=== PATIENT | male | born 1970 | race Caucasian/White ===

== ENCOUNTER 2020-06-23 16:33 | Inpatient (IN) | payer BC ==
[~2020-06-23] VITALS: Ht 172.7 cm; Wt 83.7 kg
[~2020-06-23 16:33] MED LIST: MECL-226 PO
[2020-06-23] MEDS ORDERED: D-ME-162 PO (16:52)
[2020-06-23 17:25] LABS: BASOPHILS % (AUTO) 0.7 % (0.0-2.0); EOSINOPHILS % (AUTO) 0.2 % (1.0-6.0); HEMATOCRIT 43.9 % (41-53); HEMOGLOBIN 15.5 g/dL (13.5-17.5); LYMPHOCYTES # (AUTO) 1.1 K/uL (1.0-4.8); LYMPHOCYTES % (AUTO) 16.9 % (22.0-44.0); MEAN CORPUSCULAR HEMOGLOBIN 32.3 pg (26.0-34.0); MEAN CORPUSCULAR HGB CONC 35.3 G/dL (31.0-37.0); MEAN CORPUSCULAR VOLUME 92 fL (80-100); MONOCYTES # (AUTO) 0.4 K/uL (0.1-1.0); MONOCYTES % (AUTO) 5.8 % (2.0-9.0); NEUTROPHILS % (AUTO) 76.4 % (40.0-70.0); PLATELET COUNT (AUTO) 195 K/uL (150-450); RED BLOOD CELL COUNT(AUTO) 4.78 MIL/uL (4.50-5.90); RED CELL DISTRIBUTION WIDTH 13.2 % (11.5-14.5)
[2020-06-23 17:34] LABS: ANION GAP 11 mmol/L (8-16); CALCIUM, TOTAL 8.3 mg/dL (8.8-10.5); CARBON DIOXIDE 27 mmol/L (22-29); CHLORIDE 103 mmol/L (98-107); CREATININE 1.14 mg/dL (0.60-1.30); GLOMERULAR FILTR. RATE CALC > 60 mL/min (>60); GLUCOSE,RANDOM 129 mg/dL (70-110); POTASSIUM 3.6 mmol/L (3.5-5.1); SODIUM SERUM 141 mmol/L (136-145); UREA NITROGEN, BLOOD 12 mg/dL (7-18)
[2020-06-23 17:40] LABS: ALANINE AMINOTRANSFERASE 121 U/L (12-78); ALBUMIN 3.1 g/dL (3.4-5.0); ALKALINE PHOSPHATASE 111 U/L (46-116); ASPARTATE AMINOTRANSFERASE 137 U/L (15-37); BILIRUBIN,TOTAL 0.4 mg/dL (0.1-1.0); LIPASE 233 U/L (73-393); TOTAL PROTEIN, SERUM 7.4 g/dL (6.4-8.2)
[2020-06-23 18:04] LABS: ABG A-A DIFF O2 128.8 mmHg (10-20.0); ABG BASE EXCESS 1.6 mmol/L (-2.0-3.0); ABG CARBOXYHEMOGLOBIN 0.8 % (0.0-1.5); ABG HCO3 26.4 mmol/L (22.0-26.0); ABG METHEMOGLOBIN 0.3 % (0.0-1.5); ABG OXYGEN CONTENT 19.8 mL/dL (15.0-23.0); ABG OXYGEN SATURATION 93.4 % (95.0-98.0); ABG OXYHEMOGLOBIN 92.4 % (94.0-100.0); ABG PCO2 32 mmHg (35-45); ABG PH 7.504 (7.35-7.450); ABG TOTAL HEMOGLOBIN 15.3 G/dL (12.0-18.0); PO2, ARTERIAL BG 61.8 mmHg (84.0-92.0); SOURCE, BLOOD GAS ARTERIAL; TEMPERATURE, FAHRENHEIT, BG 98.6 FAHREN (96.0-98.6)
[2020-06-23 18:05] LABS: O2 DEVICE,BLOOD GAS CANNULA (ROOM AIR); SITE, BLOOD GAS RT RADIAL
[2020-06-23] MEDS ORDERED: SODIUM CHLORIDE 0.9% 1,000 ML IV ONE ×2 (18:15→20:15)
[2020-06-23 18:22] LABS: B-TYPE NATRIURETIC PEPTIDE 55 pg/mL (0-100)
[2020-06-23 18:24] LABS: COVID AG,FIA SOURCE NASOPHARYNGEAL
[2020-06-23 18:38] LABS: LACTIC ACID 1.1 mmol/L (0.4-2.0)
[2020-06-23] MEDS ORDERED: ACETAMINOPHEN 500 MG TABLET PO ONE (19:15)
[2020-06-23 19:17] LABS: INFLUENZA TYPE A NEGATIVE FOR TYPE A (NEGATIVE); INFLUENZA TYPE B NEGATIVE FOR TYPE B (NEGATIVE)
[2020-06-23] MEDS ORDERED: VANCOMYCIN HCL 1.5 GM in DEXTROSE 5%-WATER 250 ML IV ONE (19:30)
[2020-06-23] MEDS ORDERED: PIPERACILLIN/TAZO 3.375 GM/D5W 50 ML IV ONE (19:30)
[2020-06-23] MEDS ORDERED: ACETAMINOPHEN 325 MG TABLET PO PRN (19:30)
[2020-06-23] MEDS ORDERED: ONDANSETRON HCL 4 MG/2 ML VIAL IVP PRN (19:30)
[2020-06-23] MEDS ORDERED: SODIUM CHLORIDE 0.9% 100 ML ONE (20:05)
[2020-06-23] MEDS ORDERED: IOVERSOL 350 MG/ML 100 ML VIAL ONE (20:06)
[2020-06-23 20:08] LABS: C-REACTIVE PROTEIN QUANT 8.35 mg/dL (0.00-0.30); LACTATE DEHYDROGENASE 677 U/L (85-227)
[2020-06-23 20:40] LABS: FERRITIN 1522 ng/mL (26-388)
[2020-06-23 21:19] LABS: APPEARANCE,URINE CLEAR (CLEAR); BILIRUBIN,URINE NEGATIVE (NEGATIVE); GLUCOSE, URINE (UA) NEGATIVE (NEGATIVE); KETONES,URINE NEGATIVE (NEGATIVE); LEUKOCYTE ESTERASE ,URINE NEGATIVE (NEGATIVE); NITRATE,URINE NEGATIVE (NEGATIVE); OCCULT BLOOD,URINE TRACE (NEGATIVE); PROTEIN,URINE SEE CONFIRM (NEGATIVE)
[2020-06-23 21:31] LABS: SULFOSALICYLIC ACID,URINE 3+ (Negative)
[2020-06-23 21:32] LABS: BACTERIA,URINE None Seen /HPF (None Seen); RBC,URINE 0-2 /HPF (0-2); SQUAMOUS EPITHELIAL CELL,UR None Seen /LPF (None Seen); WBC,URINE None Seen /HPF (0-5)
[2020-06-23] MEDS: DOCUSATE SODIUM 100 MG CAPSULE PO SCH (21:57)
[2020-06-23] MEDS: AZITHROMYCIN 500 MG/NS 250 ML IV SCH (23:17)
[2020-06-24] MEDS ORDERED: HEPARIN SODIUM,PORCINE 5,000 UNITS/ML VIAL SQ SCH
[2020-06-24] MEDS: CefTRIAXone 1 GM/DEXTROSE 50 ML IV SCH ×2 (01:42→23:49)
[2020-06-24 02:50] VITALS: BP 137/86
[2020-06-24] MEDS ORDERED: INFLUENZA VIRUS VACCINE QVS 2020-21 (6MO+)/PF 60 MCG/0.5 ML SYRINGE IM ONE (07:00)
[2020-06-24 08:00] VITALS: BP 130/82
[2020-06-24 08:14] LABS: BASOPHILS % (AUTO) 0.2 % (0.0-2.0); EOSINOPHILS % (AUTO) 0.1 % (1.0-6.0); HEMATOCRIT 39.8 % (41-53); HEMOGLOBIN 13.5 g/dL (13.5-17.5); LYMPHOCYTES # (AUTO) 0.8 K/uL (1.0-4.8); LYMPHOCYTES % (AUTO) 11.8 % (22.0-44.0); MEAN CORPUSCULAR HEMOGLOBIN 31.2 pg (26.0-34.0); MEAN CORPUSCULAR VOLUME 92 fL (80-100); MONOCYTES # (AUTO) 0.3 K/uL (0.1-1.0); MONOCYTES % (AUTO) 4.9 % (2.0-9.0); NEUTROPHILS # (AUTO) 5.3 K/uL (1.8-7.7); PLATELET COUNT (AUTO) 190 K/uL (150-450); RED BLOOD CELL COUNT(AUTO) 4.35 MIL/uL (4.50-5.90)
[2020-06-24] MEDS ORDERED: REMDESIVIR (EUA) 200 MG in SODIUM CHLORIDE 0.9% 210 ML IV ONE (08:30)
[2020-06-24] MEDS ORDERED: DEXTROSE 50%-WATER 25 GM/50 ML SYRINGE IVP PRN (08:30)
[2020-06-24 08:49] LABS: ALANINE AMINOTRANSFERASE 94 U/L (12-78); ALBUMIN 2.3 g/dL (3.4-5.0); ALKALINE PHOSPHATASE 91 U/L (46-116); ANION GAP 9 mmol/L (8-16); ASPARTATE AMINOTRANSFERASE 97 U/L (15-37); BILIRUBIN,TOTAL 0.4 mg/dL (0.1-1.0); CALCIUM, TOTAL 7.7 mg/dL (8.8-10.5); CARBON DIOXIDE 24 mmol/L (22-29); CHLORIDE 105 mmol/L (98-107); CREATININE 0.83 mg/dL (0.60-1.30); FERRITIN 1536 ng/mL (26-388); GLOMERULAR FILTR. RATE CALC > 60 mL/min (>60); GLUCOSE,RANDOM 117 mg/dL (70-110); POTASSIUM 3.6 mmol/L (3.5-5.1); SODIUM SERUM 138 mmol/L (136-145); TOTAL PROTEIN, SERUM 6.2 g/dL (6.4-8.2); UREA NITROGEN, BLOOD 9 mg/dL (7-18)
[2020-06-24] MEDS: DOCUSATE SODIUM 100 MG CAPSULE PO SCH ×2 (09:00→20:50)
[2020-06-24] MEDS: APIXABAN 5 MG TABLET PO SCH ×2 (09:49→20:50)
[2020-06-24] MEDS: DEXAMETHASONE SOD PHOS 4 MG/ML VIAL IVP SCH (09:52)
[2020-06-24 11:03] VITALS: BP 118/60
[2020-06-24] MEDS: INSULIN LISPRO 100 UNITS/ML SQ PRN ×3 (11:32→21:15)
[2020-06-24 12:11] LABS: GLUCOMETER DEV NAME(LOC) 5N.1; GLUCOSE,POINT OF CARE 164 MG/DL (70-110)
[2020-06-24 15:14] VITALS: BP 129/73
[2020-06-24 18:01] LABS: GLUCOMETER DEV NAME(LOC) 5N.1; GLUCOSE,POINT OF CARE 171 MG/DL (70-110)
[2020-06-24 20:21] VITALS: BP 123/82
[2020-06-24] MEDS ORDERED: SODIUM CHLORIDE 0.9% 250 ML IV ONE (20:46)
[2020-06-24 21:38] LABS: GLUCOMETER DEV NAME(LOC) 5N.1; GLUCOSE,POINT OF CARE 167 MG/DL (70-110)
[2020-06-24] MEDS: AZITHROMYCIN 500 MG/NS 250 ML IV SCH (22:49)
[2020-06-25] VITALS (12 sets, daily range): BP systolic 98–134; BP diastolic 46–85
[2020-06-25 08:13] LABS: BASOPHILS % (AUTO) 0.1 % (0.0-2.0); EOSINOPHILS % (AUTO) 0 % (1.0-6.0); HEMATOCRIT 40.2 % (41-53); HEMOGLOBIN 14.2 g/dL (13.5-17.5); LYMPHOCYTES # (AUTO) 0.7 K/uL (1.0-4.8); MEAN CORPUSCULAR HEMOGLOBIN 32.4 pg (26.0-34.0); MEAN CORPUSCULAR HGB CONC 35.4 G/dL (31.0-37.0); MEAN CORPUSCULAR VOLUME 92 fL (80-100); MONOCYTES # (AUTO) 0.7 K/uL (0.1-1.0); MONOCYTES % (AUTO) 9.8 % (2.0-9.0); NEUTROPHILS # (AUTO) 5.9 K/uL (1.8-7.7); NEUTROPHILS % (AUTO) 80.1 % (40.0-70.0); PLATELET COUNT (AUTO) 245 K/uL (150-450); RED BLOOD CELL COUNT(AUTO) 4.39 MIL/uL (4.50-5.90); RED CELL DISTRIBUTION WIDTH 13.4 % (11.5-14.5)
[2020-06-25] MEDS: APIXABAN 5 MG TABLET PO SCH ×2 (08:35→20:21)
[2020-06-25] MEDS: DEXAMETHASONE SOD PHOS 4 MG/ML VIAL IVP SCH (08:35)
[2020-06-25] MEDS: DOCUSATE SODIUM 100 MG CAPSULE PO SCH ×2 (08:39→20:21)
[2020-06-25 09:00] LABS: ALANINE AMINOTRANSFERASE 91 U/L (12-78); ALBUMIN 2.2 g/dL (3.4-5.0); ALKALINE PHOSPHATASE 93 U/L (46-116); ANION GAP 8 mmol/L (8-16); ASPARTATE AMINOTRANSFERASE 79 U/L (15-37); BILIRUBIN,TOTAL 0.4 mg/dL (0.1-1.0); C-REACTIVE PROTEIN QUANT 6.49 mg/dL (0.00-0.30); CALCIUM, TOTAL 8.2 mg/dL (8.8-10.5); CARBON DIOXIDE 24 mmol/L (22-29); CHLORIDE 106 mmol/L (98-107); CREATININE 0.82 mg/dL (0.60-1.30); FERRITIN 1651 ng/mL (26-388); GLOMERULAR FILTR. RATE CALC > 60 mL/min (>60); GLUCOSE,RANDOM 131 mg/dL (70-110); POTASSIUM 3.7 mmol/L (3.5-5.1); SODIUM SERUM 138 mmol/L (136-145); TOTAL PROTEIN, SERUM 6.4 g/dL (6.4-8.2); UREA NITROGEN, BLOOD 15 mg/dL (7-18)
[2020-06-25] MEDS: REMDESIVIR (EUA) 100 MG in SODIUM CHLORIDE 0.9% 230 ML IV SCH (10:38)
[2020-06-25] MEDS: INSULIN LISPRO 100 UNITS/ML SQ PRN ×3 (11:55→20:27)
[2020-06-25 17:34] LABS: GLUCOMETER DEV NAME(LOC) 5N.1; GLUCOSE,POINT OF CARE 126 MG/DL (70-110)
[2020-06-25 17:34] LABS: GLUCOMETER DEV NAME(LOC) 5N.1; GLUCOSE,POINT OF CARE 209 MG/DL (70-110)
[2020-06-25 20:11] LABS: GLUCOMETER DEV NAME(LOC) 5S.2B; GLUCOSE,POINT OF CARE 170 MG/DL (70-110)
[2020-06-25] MEDS: ASCORBIC ACID 500 MG TABLET PO SCH (20:21)
[2020-06-25] MEDS: FAMOTIDINE 20 MG TABLET PO SCH (20:21)
[2020-06-25] MEDS: ZINC SULFATE 220 MG CAPSULE PO SCH (20:21)
[2020-06-25] MEDS ORDERED: CHOLECALCIFEROL (VIT D3) 1,000 UNITS [25 MCG] TABLET PO ONE (21:00)
[2020-06-25] MEDS: AZITHROMYCIN 500 MG/NS 250 ML IV SCH (23:27)
[2020-06-26 00:33] VITALS: BP 130/85
[2020-06-26] MEDS: CefTRIAXone 1 GM/DEXTROSE 50 ML IV SCH (00:34)
[2020-06-26 01:01] LABS: GLUCOMETER DEV NAME(LOC) 5S.2B; GLUCOSE,POINT OF CARE 173 MG/DL (70-110)
[2020-06-26 04:56] VITALS: BP 115/71
[2020-06-26 06:13] LABS: BASOPHILS % (AUTO) 0.1 % (0.0-2.0); EOSINOPHILS % (AUTO) 0 % (1.0-6.0); HEMATOCRIT 39.5 % (41-53); HEMOGLOBIN 13.7 g/dL (13.5-17.5); LYMPHOCYTES # (AUTO) 0.6 K/uL (1.0-4.8); LYMPHOCYTES % (AUTO) 6.4 % (22.0-44.0); MEAN CORPUSCULAR HEMOGLOBIN 31.9 pg (26.0-34.0); MEAN CORPUSCULAR HGB CONC 34.6 G/dL (31.0-37.0); MEAN CORPUSCULAR VOLUME 92 fL (80-100); MONOCYTES # (AUTO) 0.8 K/uL (0.1-1.0); NEUTROPHILS # (AUTO) 8.6 K/uL (1.8-7.7); PLATELET COUNT (AUTO) 291 K/uL (150-450); RED BLOOD CELL COUNT(AUTO) 4.29 MIL/uL (4.50-5.90); RED CELL DISTRIBUTION WIDTH 13.5 % (11.5-14.5)
[2020-06-26 06:49] LABS: ALANINE AMINOTRANSFERASE 80 U/L (12-78); ALBUMIN 2.3 g/dL (3.4-5.0); ALKALINE PHOSPHATASE 95 U/L (46-116); ANION GAP 10 mmol/L (8-16); ASPARTATE AMINOTRANSFERASE 53 U/L (15-37); BILIRUBIN,TOTAL 0.4 mg/dL (0.1-1.0); C-REACTIVE PROTEIN QUANT 2.08 mg/dL (0.00-0.30); CALCIUM, TOTAL 8.4 mg/dL (8.8-10.5); CARBON DIOXIDE 23 mmol/L (22-29); CHLORIDE 104 mmol/L (98-107); CREATININE 0.86 mg/dL (0.60-1.30); GLOMERULAR FILTR. RATE CALC > 60 mL/min (>60); GLUCOSE,RANDOM 129 mg/dL (70-110); POTASSIUM 3.8 mmol/L (3.5-5.1); SODIUM SERUM 137 mmol/L (136-145); TOTAL PROTEIN, SERUM 6.3 g/dL (6.4-8.2); UREA NITROGEN, BLOOD 19 mg/dL (7-18)
[2020-06-26 06:49] LABS: GLUCOMETER DEV NAME(LOC) 5S.2B; GLUCOSE,POINT OF CARE 115 MG/DL (70-110)
[2020-06-26 07:19] LABS: NEUTROPHILS % (AUTO) 85.5 % (40.0-70.0)
[2020-06-26 07:39] VITALS: BP 136/76
[2020-06-26] MEDS: APIXABAN 5 MG TABLET PO SCH ×2 (08:00→20:34)
[2020-06-26] MEDS: ASCORBIC ACID 500 MG TABLET PO SCH ×2 (08:00→20:34)
[2020-06-26] MEDS: DEXAMETHASONE SOD PHOS 4 MG/ML VIAL IVP SCH (08:00)
[2020-06-26] MEDS: DOCUSATE SODIUM 100 MG CAPSULE PO SCH ×2 (08:00→20:34)
[2020-06-26] MEDS: FAMOTIDINE 20 MG TABLET PO SCH ×2 (08:01→20:34)
[2020-06-26] MEDS: ZINC SULFATE 220 MG CAPSULE PO SCH ×2 (08:01→20:34)
[2020-06-26] MEDS: CHOLECALCIFEROL (VIT D3) 1,000 UNITS [25 MCG] TABLET PO SCH (08:01)
[2020-06-26 08:48] LABS: FERRITIN 1242 ng/mL (26-388)
[2020-06-26] MEDS: REMDESIVIR (EUA) 100 MG in SODIUM CHLORIDE 0.9% 230 ML IV SCH (09:11)
[2020-06-26 11:19] VITALS: BP 115/72
[2020-06-26] MEDS: INSULIN LISPRO 100 UNITS/ML SQ PRN ×3 (11:40→20:41)
[2020-06-26 15:05] VITALS: BP 118/59
[2020-06-26 19:15] VITALS: BP 137/87
[2020-06-26 19:18] LABS: GLUCOMETER DEV NAME(LOC) 5S.2B; GLUCOSE,POINT OF CARE 184 MG/DL (70-110)
[2020-06-26 19:19] LABS: GLUCOMETER DEV NAME(LOC) 5N.1; GLUCOSE,POINT OF CARE 141 MG/DL (70-110)
[2020-06-26 22:38] LABS: GLUCOMETER DEV NAME(LOC) 5N.1; GLUCOSE,POINT OF CARE 191 MG/DL (70-110)
[2020-06-27] VITALS: BP 123/87
[2020-06-27 05:10] VITALS: BP 116/75
[2020-06-27 07:08] LABS: GLUCOMETER DEV NAME(LOC) 5N.1; GLUCOSE,POINT OF CARE 116 MG/DL (70-110)
[2020-06-27] MEDS: DOCUSATE SODIUM 100 MG CAPSULE PO SCH ×2 (07:18→20:50)
[2020-06-27 07:43] LABS: EOSINOPHILS % (AUTO) 0 % (1.0-6.0); HEMATOCRIT 42.5 % (41-53); HEMOGLOBIN 14.7 g/dL (13.5-17.5); LYMPHOCYTES % (AUTO) 6.7 % (22.0-44.0); MEAN CORPUSCULAR HEMOGLOBIN 31.6 pg (26.0-34.0); MEAN CORPUSCULAR HGB CONC 34.6 G/dL (31.0-37.0); MEAN CORPUSCULAR VOLUME 92 fL (80-100); MONOCYTES % (AUTO) 6.6 % (2.0-9.0); RED BLOOD CELL COUNT(AUTO) 4.64 MIL/uL (4.50-5.90); RED CELL DISTRIBUTION WIDTH 13.2 % (11.5-14.5)
[2020-06-27 07:44] LABS: NEUTROPHILS % (AUTO) 86.7 % (40.0-70.0)
[2020-06-27 07:53] LABS: ALANINE AMINOTRANSFERASE 85 U/L (12-78); ALBUMIN 2.3 g/dL (3.4-5.0); ALKALINE PHOSPHATASE 107 U/L (46-116); ANION GAP 8 mmol/L (8-16); ASPARTATE AMINOTRANSFERASE 50 U/L (15-37); BILIRUBIN,TOTAL 0.6 mg/dL (0.1-1.0); C-REACTIVE PROTEIN QUANT 1.11 mg/dL (0.00-0.30); CALCIUM, TOTAL 8.5 mg/dL (8.8-10.5); CARBON DIOXIDE 24 mmol/L (22-29); CHLORIDE 104 mmol/L (98-107); CREATININE 0.91 mg/dL (0.60-1.30); FERRITIN 897 ng/mL (26-388); GLOMERULAR FILTR. RATE CALC > 60 mL/min (>60); GLUCOSE,RANDOM 122 mg/dL (70-110); POTASSIUM 3.8 mmol/L (3.5-5.1); SODIUM SERUM 136 mmol/L (136-145); TOTAL PROTEIN, SERUM 6.7 g/dL (6.4-8.2); UREA NITROGEN, BLOOD 18 mg/dL (7-18)
[2020-06-27] MEDS: CHOLECALCIFEROL (VIT D3) 1,000 UNITS [25 MCG] TABLET PO SCH (08:13)
[2020-06-27] MEDS: ASCORBIC ACID 500 MG TABLET PO SCH ×2 (08:14→20:50)
[2020-06-27] MEDS: APIXABAN 5 MG TABLET PO SCH ×2 (08:14→20:50)
[2020-06-27] MEDS: DEXAMETHASONE SOD PHOS 4 MG/ML VIAL IVP SCH (08:14)
[2020-06-27] MEDS: FAMOTIDINE 20 MG TABLET PO SCH ×2 (08:14→20:49)
[2020-06-27] MEDS: ZINC SULFATE 220 MG CAPSULE PO SCH ×2 (08:14→20:50)
[2020-06-27 08:28] VITALS: BP 132/84
[2020-06-27] MEDS: REMDESIVIR (EUA) 100 MG in SODIUM CHLORIDE 0.9% 230 ML IV SCH (10:17)
[2020-06-27 10:40] LABS: PLATELET COUNT (AUTO) 354 K/uL (150-450)
[2020-06-27] MEDS: INSULIN LISPRO 100 UNITS/ML SQ PRN ×2 (11:58→18:01)
[2020-06-27 12:25] VITALS: BP 137/94
[2020-06-27 16:00] VITALS: BP 123/80
[2020-06-27 19:33] VITALS: BP 121/83
[2020-06-28 00:33] VITALS: BP 111/88
[2020-06-28 03:33] VITALS: BP 107/74
[2020-06-28 06:37] LABS: BASOPHILS % (AUTO) 0.8 % (0.0-2.0); EOSINOPHILS % (AUTO) 0.3 % (1.0-6.0); HEMATOCRIT 44.4 % (41-53); HEMOGLOBIN 15.3 g/dL (13.5-17.5); LYMPHOCYTES # (AUTO) 1.4 K/uL (1.0-4.8); LYMPHOCYTES % (AUTO) 8.6 % (22.0-44.0); MEAN CORPUSCULAR HEMOGLOBIN 31.8 pg (26.0-34.0); MEAN CORPUSCULAR HGB CONC 34.4 G/dL (31.0-37.0); MEAN CORPUSCULAR VOLUME 92 fL (80-100); MONOCYTES # (AUTO) 0.9 K/uL (0.1-1.0); MONOCYTES % (AUTO) 5.8 % (2.0-9.0); NEUTROPHILS # (AUTO) 13.5 K/uL (1.8-7.7); NEUTROPHILS % (AUTO) 84.5 % (40.0-70.0); PLATELET COUNT (AUTO) 373 K/uL (150-450); RED CELL DISTRIBUTION WIDTH 13.1 % (11.5-14.5)
[2020-06-28 07:10] LABS: ALBUMIN 2.4 g/dL (3.4-5.0); ANION GAP 8 mmol/L (8-16); ASPARTATE AMINOTRANSFERASE 38 U/L (15-37); CALCIUM, TOTAL 8.4 mg/dL (8.8-10.5); CARBON DIOXIDE 25 mmol/L (22-29); CHLORIDE 103 mmol/L (98-107); CREATININE 0.96 mg/dL (0.60-1.30); GLOMERULAR FILTR. RATE CALC > 60 mL/min (>60); GLUCOSE,RANDOM 112 mg/dL (70-110); POTASSIUM 3.7 mmol/L (3.5-5.1); SODIUM SERUM 136 mmol/L (136-145); UREA NITROGEN, BLOOD 21 mg/dL (7-18)
[2020-06-28 07:29] LABS: GLUCOMETER DEV NAME(LOC) 5S.2B; GLUCOSE,POINT OF CARE 178 MG/DL (70-110)
[2020-06-28 07:35] VITALS: BP 123/79
[2020-06-28 07:38] LABS: ALANINE AMINOTRANSFERASE 83 U/L (12-78); ALKALINE PHOSPHATASE 113 U/L (46-116); BILIRUBIN,TOTAL 0.7 mg/dL (0.1-1.0); C-REACTIVE PROTEIN QUANT 1.42 mg/dL (0.00-0.30); FERRITIN 802 ng/mL (26-388); TOTAL PROTEIN, SERUM 6.8 g/dL (6.4-8.2)
[2020-06-28] MEDS: ZINC SULFATE 220 MG CAPSULE PO SCH ×2 (08:08→21:23)
[2020-06-28] MEDS: FAMOTIDINE 20 MG TABLET PO SCH ×2 (08:08→21:23)
[2020-06-28] MEDS: ASCORBIC ACID 500 MG TABLET PO SCH ×2 (08:08→21:22)
[2020-06-28] MEDS: DOCUSATE SODIUM 100 MG CAPSULE PO SCH ×2 (08:08→21:00)
[2020-06-28] MEDS: APIXABAN 5 MG TABLET PO SCH ×2 (08:09→21:23)
[2020-06-28] MEDS: DEXAMETHASONE SOD PHOS 4 MG/ML VIAL IVP SCH (08:09)
[2020-06-28] MEDS: CHOLECALCIFEROL (VIT D3) 1,000 UNITS [25 MCG] TABLET PO SCH (08:09)
[2020-06-28 08:15] LABS: GLUCOMETER DEV NAME(LOC) 5N.3; GLUCOSE,POINT OF CARE 102 MG/DL (70-110)
[2020-06-28] MEDS: REMDESIVIR (EUA) 100 MG in SODIUM CHLORIDE 0.9% 230 ML IV SCH (09:52)
[2020-06-28 12:05] VITALS: BP 123/79
[2020-06-28 12:06] LABS: ORGANISM ID Not indicated.; S PNEUMO SOURCE Urine; STREP PNEUMONIAE AG URINE Negative (Negative); STREP.PNEUMO BODY FLUID CULT. Not indicated.
[2020-06-28] MEDS: INSULIN LISPRO 100 UNITS/ML SQ PRN ×3 (12:26→21:38)
[2020-06-28 15:35] VITALS: BP 119/78
[2020-06-28 17:03] LABS: GLUCOMETER DEV NAME(LOC) 5N.3; GLUCOSE,POINT OF CARE 240 MG/DL (70-110)
[2020-06-28 17:03] LABS: GLUCOMETER DEV NAME(LOC) 5N.3; GLUCOSE,POINT OF CARE 186 MG/DL (70-110)
[2020-06-28 20:18] VITALS: BP 125/77
[2020-06-29 00:09] VITALS: BP 123/69
[2020-06-29 04:07] VITALS: BP 113/69
[2020-06-29 08:16] LABS: GLUCOMETER DEV NAME(LOC) 5N.3; GLUCOSE,POINT OF CARE 161 MG/DL (70-110)
[2020-06-29 08:16] LABS: GLUCOMETER DEV NAME(LOC) 5N.3; GLUCOSE,POINT OF CARE 117 MG/DL (70-110)
[2020-06-29] MEDS: APIXABAN 5 MG TABLET PO SCH ×2 (08:16→20:30)
[2020-06-29] MEDS: CHOLECALCIFEROL (VIT D3) 1,000 UNITS [25 MCG] TABLET PO SCH (08:16)
[2020-06-29] MEDS: ASCORBIC ACID 500 MG TABLET PO SCH ×2 (08:16→20:30)
[2020-06-29] MEDS: FAMOTIDINE 20 MG TABLET PO SCH ×2 (08:16→20:30)
[2020-06-29] MEDS: DEXAMETHASONE SOD PHOS 4 MG/ML VIAL IVP SCH (08:18)
[2020-06-29] MEDS: ZINC SULFATE 220 MG CAPSULE PO SCH ×2 (08:18→20:30)
[2020-06-29 08:33] VITALS: BP 124/76
[2020-06-29] MEDS: DOCUSATE SODIUM 100 MG CAPSULE PO SCH ×2 (08:33→20:30)
[2020-06-29] MEDS: INSULIN LISPRO 100 UNITS/ML SQ PRN ×3 (11:55→20:40)
[2020-06-29 12:52] VITALS: BP 105/73
[2020-06-29 16:09] VITALS: BP 104/71
[2020-06-29 20:00] VITALS: BP 118/86
[2020-06-29 23:21] LABS: GLUCOMETER DEV NAME(LOC) 5N.1; GLUCOSE,POINT OF CARE 274 MG/DL (70-110)
[2020-06-30] VITALS: BP 102/59
[2020-06-30 04:00] VITALS: BP 110/77
[2020-06-30 06:07] LABS: GLUCOMETER DEV NAME(LOC) 5N.1; GLUCOSE,POINT OF CARE 106 MG/DL (70-110)
[2020-06-30 07:34] LABS: BASOPHILS % (AUTO) 0.1 % (0.0-2.0); EOSINOPHILS % (AUTO) 0.9 % (1.0-6.0); HEMATOCRIT 45.1 % (41-53); HEMOGLOBIN 15.7 g/dL (13.5-17.5); LYMPHOCYTES # (AUTO) 1.4 K/uL (1.0-4.8); LYMPHOCYTES % (AUTO) 8.4 % (22.0-44.0); MEAN CORPUSCULAR HEMOGLOBIN 32.3 pg (26.0-34.0); MEAN CORPUSCULAR HGB CONC 34.8 G/dL (31.0-37.0); MEAN CORPUSCULAR VOLUME 93 fL (80-100); NEUTROPHILS # (AUTO) 14.5 K/uL (1.8-7.7); NEUTROPHILS % (AUTO) 84.6 % (40.0-70.0); PLATELET COUNT (AUTO) 503 K/uL (150-450); RED BLOOD CELL COUNT(AUTO) 4.86 MIL/uL (4.50-5.90); RED CELL DISTRIBUTION WIDTH 13.1 % (11.5-14.5)
[2020-06-30 07:53] LABS: ALANINE AMINOTRANSFERASE 48 U/L (12-78); ALBUMIN 2.5 g/dL (3.4-5.0); ALKALINE PHOSPHATASE 110 U/L (46-116); ANION GAP 7 mmol/L (8-16); ASPARTATE AMINOTRANSFERASE 20 U/L (15-37); BILIRUBIN,TOTAL 0.6 mg/dL (0.1-1.0); C-REACTIVE PROTEIN QUANT 2.12 mg/dL (0.00-0.30); CALCIUM, TOTAL 8.6 mg/dL (8.8-10.5); CARBON DIOXIDE 27 mmol/L (22-29); CHLORIDE 109 mmol/L (98-107); CREATININE 1.01 mg/dL (0.60-1.30); FERRITIN 678 ng/mL (26-388); GLOMERULAR FILTR. RATE CALC > 60 mL/min (>60); GLUCOSE,RANDOM 109 mg/dL (70-110); POTASSIUM 4.1 mmol/L (3.5-5.1); SODIUM SERUM 143 mmol/L (136-145); TOTAL PROTEIN, SERUM 6.5 g/dL (6.4-8.2); UREA NITROGEN, BLOOD 24 mg/dL (7-18)
[2020-06-30 08:15] LABS: GLUCOMETER DEV NAME(LOC) 5N.3; GLUCOSE,POINT OF CARE 163 MG/DL (70-110)
[2020-06-30 08:15] LABS: GLUCOMETER DEV NAME(LOC) 5N.3; GLUCOSE,POINT OF CARE 194 MG/DL (70-110)
[2020-06-30 08:48] VITALS: BP 112/79
[2020-06-30] MEDS: FAMOTIDINE 20 MG TABLET PO SCH ×2 (08:49→20:26)
[2020-06-30] MEDS: APIXABAN 5 MG TABLET PO SCH ×2 (08:49→20:27)
[2020-06-30] MEDS: DOCUSATE SODIUM 100 MG CAPSULE PO SCH ×2 (08:49→20:26)
[2020-06-30] MEDS: ASCORBIC ACID 500 MG TABLET PO SCH ×2 (08:49→20:26)
[2020-06-30] MEDS: DEXAMETHASONE SOD PHOS 4 MG/ML VIAL IVP SCH (08:49)
[2020-06-30] MEDS: CHOLECALCIFEROL (VIT D3) 1,000 UNITS [25 MCG] TABLET PO SCH (08:49)
[2020-06-30] MEDS: ZINC SULFATE 220 MG CAPSULE PO SCH ×2 (08:49→20:26)
[2020-06-30] MEDS: INSULIN LISPRO 100 UNITS/ML SQ PRN ×3 (12:37→20:35)
[2020-06-30 13:00] VITALS: BP 104/74
[2020-06-30 13:56] LABS: GLUCOMETER DEV NAME(LOC) 5N.3; GLUCOSE,POINT OF CARE 145 MG/DL (70-110)
[2020-06-30 18:12] VITALS: BP 102/71
[2020-06-30 19:29] LABS: GLUCOMETER DEV NAME(LOC) 5N.1; GLUCOSE,POINT OF CARE 194 MG/DL (70-110)
[2020-06-30 20:00] VITALS: BP 129/71
[2020-07-01 04:00] VITALS: BP 95/65
[2020-07-01 06:30] LABS: BASOPHILS % (AUTO) 0.1 % (0.0-2.0); EOSINOPHILS % (AUTO) 0.7 % (1.0-6.0); HEMOGLOBIN 15.2 g/dL (13.5-17.5); LYMPHOCYTES # (AUTO) 1.4 K/uL (1.0-4.8); LYMPHOCYTES % (AUTO) 10.3 % (22.0-44.0); MEAN CORPUSCULAR HEMOGLOBIN 31.9 pg (26.0-34.0); MEAN CORPUSCULAR HGB CONC 34.5 G/dL (31.0-37.0); MEAN CORPUSCULAR VOLUME 92 fL (80-100); MONOCYTES # (AUTO) 0.9 K/uL (0.1-1.0); MONOCYTES % (AUTO) 6.9 % (2.0-9.0); PLATELET COUNT (AUTO) 533 K/uL (150-450); RED BLOOD CELL COUNT(AUTO) 4.76 MIL/uL (4.50-5.90); RED CELL DISTRIBUTION WIDTH 13.2 % (11.5-14.5)
[2020-07-01 08:00] VITALS: BP 104/67
[2020-07-01] MEDS: DEXAMETHASONE SOD PHOS 4 MG/ML VIAL IVP SCH (08:08)
[2020-07-01] MEDS: DOCUSATE SODIUM 100 MG CAPSULE PO SCH ×3 (08:08→20:03)
[2020-07-01] MEDS: ZINC SULFATE 220 MG CAPSULE PO SCH ×2 (08:10→19:55)
[2020-07-01] MEDS: CHOLECALCIFEROL (VIT D3) 1,000 UNITS [25 MCG] TABLET PO SCH (08:10)
[2020-07-01] MEDS: FAMOTIDINE 20 MG TABLET PO SCH ×2 (08:10→19:55)
[2020-07-01] MEDS: ASCORBIC ACID 500 MG TABLET PO SCH ×2 (08:10→19:55)
[2020-07-01] MEDS: APIXABAN 5 MG TABLET PO SCH ×2 (08:10→19:55)
[2020-07-01] MEDS: INSULIN LISPRO 100 UNITS/ML SQ PRN ×3 (11:41→21:21)
[2020-07-01 12:00] VITALS: BP 97/67
[2020-07-01 16:11] VITALS: BP 115/64
[2020-07-01 18:40] LABS: GLUCOMETER DEV NAME(LOC) 5N.3; GLUCOSE,POINT OF CARE 174 MG/DL (70-110)
[2020-07-01 18:40] LABS: GLUCOMETER DEV NAME(LOC) 5N.3; GLUCOSE,POINT OF CARE 190 MG/DL (70-110)
[2020-07-01 18:40] LABS: GLUCOMETER DEV NAME(LOC) 5N.3; GLUCOSE,POINT OF CARE 123 MG/DL (70-110)
[2020-07-01 18:40] LABS: GLUCOMETER DEV NAME(LOC) 5N.3; GLUCOSE,POINT OF CARE 169 MG/DL (70-110)
[2020-07-01 20:10] VITALS: BP 110/75
[2020-07-02] VITALS (7 sets, daily range): BP systolic 94–115; BP diastolic 61–76
[2020-07-02 05:51] LABS: GLUCOMETER DEV NAME(LOC) 5N.3; GLUCOSE,POINT OF CARE 180 MG/DL (70-110)
[2020-07-02 07:13] LABS: ALANINE AMINOTRANSFERASE 50 U/L (12-78); ALBUMIN 2.5 g/dL (3.4-5.0); ALKALINE PHOSPHATASE 115 U/L (46-116); ANION GAP 5 mmol/L (8-16); ASPARTATE AMINOTRANSFERASE 21 U/L (15-37); BILIRUBIN,TOTAL 0.7 mg/dL (0.1-1.0); CALCIUM, TOTAL 8.9 mg/dL (8.8-10.5); CARBON DIOXIDE 27 mmol/L (22-29); CHLORIDE 107 mmol/L (98-107); CREATININE 1.04 mg/dL (0.60-1.30); FERRITIN 798 ng/mL (26-388); GLOMERULAR FILTR. RATE CALC > 60 mL/min (>60); GLUCOSE,RANDOM 105 mg/dL (70-110); POTASSIUM 4.3 mmol/L (3.5-5.1); SODIUM SERUM 139 mmol/L (136-145); TOTAL PROTEIN, SERUM 6.7 g/dL (6.4-8.2); UREA NITROGEN, BLOOD 24 mg/dL (7-18)
[2020-07-02] MEDS: FAMOTIDINE 20 MG TABLET PO SCH ×2 (07:45→20:04)
[2020-07-02] MEDS: APIXABAN 5 MG TABLET PO SCH ×2 (07:45→20:04)
[2020-07-02] MEDS: DOCUSATE SODIUM 100 MG CAPSULE PO SCH ×2 (07:45→20:04)
[2020-07-02] MEDS: ASCORBIC ACID 500 MG TABLET PO SCH ×2 (07:45→20:04)
[2020-07-02] MEDS: CHOLECALCIFEROL (VIT D3) 1,000 UNITS [25 MCG] TABLET PO SCH (07:45)
[2020-07-02] MEDS: ZINC SULFATE 220 MG CAPSULE PO SCH ×2 (07:45→20:04)
[2020-07-02] MEDS: DEXAMETHASONE SOD PHOS 4 MG/ML VIAL IVP SCH (07:45)
[2020-07-02 12:17] LABS: GLUCOMETER DEV NAME(LOC) 5N.1; GLUCOSE,POINT OF CARE 141 MG/DL (70-110)
[2020-07-02 12:17] LABS: GLUCOMETER DEV NAME(LOC) 5N.1; GLUCOSE,POINT OF CARE 109 MG/DL (70-110)
[2020-07-02 19:37] LABS: GLUCOMETER DEV NAME(LOC) 5N.1; GLUCOSE,POINT OF CARE 125 MG/DL (70-110)
[2020-07-02] MEDS: INSULIN LISPRO 100 UNITS/ML SQ PRN (21:19)
[2020-07-02 23:01] LABS: GLUCOMETER DEV NAME(LOC) 5N.1; GLUCOSE,POINT OF CARE 169 MG/DL (70-110)
[2020-07-03 04:35] VITALS: BP 113/53
[2020-07-03 06:01] LABS: BASOPHILS % (AUTO) 0.2 % (0.0-2.0); EOSINOPHILS % (AUTO) 0.6 % (1.0-6.0); HEMATOCRIT 43.6 % (41-53); HEMOGLOBIN 15.1 g/dL (13.5-17.5); LYMPHOCYTES # (AUTO) 1.6 K/uL (1.0-4.8); LYMPHOCYTES % (AUTO) 14.2 % (22.0-44.0); MEAN CORPUSCULAR HEMOGLOBIN 31.8 pg (26.0-34.0); MEAN CORPUSCULAR HGB CONC 34.6 G/dL (31.0-37.0); MEAN CORPUSCULAR VOLUME 92 fL (80-100); MONOCYTES # (AUTO) 1.2 K/uL (0.1-1.0); MONOCYTES % (AUTO) 10.3 % (2.0-9.0); NEUTROPHILS # (AUTO) 8.6 K/uL (1.8-7.7); NEUTROPHILS % (AUTO) 74.7 % (40.0-70.0); PLATELET COUNT (AUTO) 506 K/uL (150-450); RED BLOOD CELL COUNT(AUTO) 4.74 MIL/uL (4.50-5.90); RED CELL DISTRIBUTION WIDTH 13.1 % (11.5-14.5)
[2020-07-03 07:03] LABS: ALANINE AMINOTRANSFERASE 51 U/L (12-78); ALBUMIN 2.5 g/dL (3.4-5.0); ALKALINE PHOSPHATASE 106 U/L (46-116); ANION GAP 11 mmol/L (8-16); ASPARTATE AMINOTRANSFERASE 21 U/L (15-37); BILIRUBIN,TOTAL 0.8 mg/dL (0.1-1.0); C-REACTIVE PROTEIN QUANT 0.15 mg/dL (0.00-0.30); CALCIUM, TOTAL 8.2 mg/dL (8.8-10.5); CARBON DIOXIDE 25 mmol/L (22-29); CHLORIDE 105 mmol/L (98-107); CREATININE 1.09 mg/dL (0.60-1.30); FERRITIN 785 ng/mL (26-388); GLOMERULAR FILTR. RATE CALC > 60 mL/min (>60); GLUCOSE,RANDOM 108 mg/dL (70-110); POTASSIUM 4.2 mmol/L (3.5-5.1); SODIUM SERUM 141 mmol/L (136-145); TOTAL PROTEIN, SERUM 6.4 g/dL (6.4-8.2); UREA NITROGEN, BLOOD 26 mg/dL (7-18)
[2020-07-03 07:31] LABS: GLUCOMETER DEV NAME(LOC) 5N.1; GLUCOSE,POINT OF CARE 99 MG/DL (70-110)
[2020-07-03 07:40] VITALS: BP 112/73
[2020-07-03] MEDS: FAMOTIDINE 20 MG TABLET PO SCH (09:21)
[2020-07-03] MEDS: CHOLECALCIFEROL (VIT D3) 1,000 UNITS [25 MCG] TABLET PO SCH (09:21)
[2020-07-03] MEDS: DOCUSATE SODIUM 100 MG CAPSULE PO SCH (09:21)
[2020-07-03] MEDS: DEXAMETHASONE SOD PHOS 4 MG/ML VIAL IVP SCH (09:22)
[2020-07-03] MEDS: ZINC SULFATE 220 MG CAPSULE PO SCH (09:22)
[2020-07-03] MEDS: ASCORBIC ACID 500 MG TABLET PO SCH (09:22)
[2020-07-03] MEDS: APIXABAN 5 MG TABLET PO SCH (09:27)
[2020-07-03 11:19] VITALS: BP 112/72
[2020-07-03] MEDS ORDERED: ASPI81TA87 PO (12:23)
[2020-07-03] MEDS ORDERED: ALBU8.5H8 IH ×2 (12:25→12:26)
[2020-07-04 16:54] LABS: GLUCOMETER DEV NAME(LOC) 5N.3; GLUCOSE,POINT OF CARE 119 MG/DL (70-110)
== END 2020-07-03 13:15 | disposition home or self-care (01) | DRG 871 ==
LOC: EMS 16:33 → 5N 23:00
PROVIDERS: ADMIT Internal Medicine; ATTEND Internal Medicine
PROC: XW033E5 Introduction of Remdesivir Anti-infective into Peripheral Vein, Percutaneous Approach, New Technology Group 5 (ICD-10-PCS; principal; 2020-06-24)
PROC: 3E02340 Introduction of Influenza Vaccine into Muscle, Percutaneous Approach (ICD-10-PCS; 2020-06-24)
PROC: XW13325 Transfusion of Convalescent Plasma (Nonautologous) into Peripheral Vein, Percutaneous Approach, New Technology Group 5 (ICD-10-PCS; 2020-06-25)
PROC: 30233K1 Transfusion of Nonautologous Frozen Plasma into Peripheral Vein, Percutaneous Approach (ICD-10-PCS; 2020-06-25)
DX: A41.89 Other specified sepsis (principal); U07.1 COVID-19; J12.89 Other viral pneumonia; J96.01 Acute respiratory failure with hypoxia; D68.59 Other primary thrombophilia; D72.810 Lymphocytopenia; R74.01 Elevation of levels of liver transaminase levels; R74.8 Abnormal levels of other serum enzymes; Z79.899 Other long term (current) drug therapy; Z23 Encounter for immunization
CPT/HCPCS: 71275; 82728; 82805; 83605; 83615; 84145; 85379; 86140; 86900; 86901; 86927; 87040; 87070; 87426; 87449; 87804; 87899; 93005; 99291; J0456; J0696; J1100; J1644; J2543; J3370; J7050; J7060; 36415-L1; 36415-TC; 71045-TC; U0003

== ENCOUNTER 2024-07-14 16:06 | Emergency (ER) | payer SELFPAY ==
[~2024-07-14] VITALS: Ht 162.6 cm; Wt 93.2 kg
[~2024-07-14 16:06] MED LIST changes: +ALBU8.5H8 IH; +ASPI81TA87 PO; -MECL-226 PO
[2024-07-14 16:10] VITALS: BP 156/105; PULSE 92; RESP 18; TEMP 98.5; O2SAT 98
[2024-07-14] MEDS ORDERED: BACTDSB PO (18:50)
== END 2024-07-14 19:03 | disposition home or self-care (01) ==
LOC: EMS 16:06
DX: L03.115 Cellulitis of right lower limb (principal); Z79.82 Long term (current) use of aspirin
CPT/HCPCS: 99283; Z7502